=== PATIENT | male | born 1935 | race Caucasian/White ===

== ENCOUNTER 2017-08-20 12:17 | Inpatient (IN) ==
[2017-08-20] MEDS ORDERED: DILTIAZEM 50 MG/10 ML VIAL IV STA (12:40)
[2017-08-20] MEDS ORDERED: SODIUM CHLORIDE 0.9% 500 ML IV STA (12:40)
[2017-08-20] MEDS ORDERED: ASPIRIN 325 MG TABLET PO STA (12:40)
[2017-08-20] MEDS ORDERED: DILTIAZEM INJ 100 MG in SODIUM CHLORIDE 0.9% 100 ML IV SCH (13:00)
[2017-08-20 13:13] LABS: Basophils # 0.1 10*3/uL (0.0-0.2); Basophils % 0.6 % (0.0-0.8); Eosinophils # 0.2 10*3/uL (0.0-0.87); Eosinophils % 1.8 % (0.00-10.9); Hematocrit 40.8 VOL% (42.0-52.0); Hemoglobin 13.7 GM/DL (14.0-18.0); Immature Granulocytes % 0.3 %; Immature Granulocytes Absolute 0.03 #; Lymphocytes # 2.5 10*3/uL (1.4-4.0); Lymphocytes % 26.5 % (21.2-54.2); Mean Corpuscular HGB Conc 33.6 GM/DL (32-36); Mean Corpuscular Hemoglobin 32 PG (27-34); Mean Corpuscular Volume 93.8 FL (87-102); Mean Platelet Volume 11.7 FL (9.6-12.0); Monocytes # 1.1 10*3/uL (0.11-0.8); Monocytes % 11.2 % (1.7-12.7); Neutrophils # 5.6 10*3/uL (1.4-7.4); Neutrophils % 59.6 % (38.7-73.9); Platelet Count 210 T/CUMM (130-400); Red Blood Count 4.35 MC/CUMM (3.8-5.5); Red Cell Distribution Width 13.2 % (9.3-17.3); White Blood Count 9.5 T/CUMM (4-12)
[2017-08-20 13:26] LABS: Barbiturates Screen,Urine Positive (Negative); Benzodiazepines Screen,Urine Negative (Negative); Cannabinoid Screen,Urine Negative (Negative); Opiate Screen,Urine Negative (Negative); Phencyclidine Screen,Urine Negative (Negative)
[2017-08-20 13:27] LABS: PT Patient Result 10.7 SECS
[2017-08-20 14:04] LABS: Alanine Aminotransferase 23 U/L (16-61); Albumin 3.5 G/DL (3.4-5.0); Alkaline Phosphatase 67 U/L (45-117); Aspartate Amino Transferase 19 U/L (0-37); Bilirubin,Total < 0.39 MG/DL (0.2-1.0); Blood Urea Nitrogen 25 MG/DL (7-18); Calcium 8.9 MG/DL (8.5-10.1); Glucose 109 MG/DL (74-106); Osmolality,Calculated 281.5 MOS/KG (273-304); Potassium 4.2 MMOL/L (3.5-5.1); Sodium 139 MMOL/L (136-145); Total Protein 7.9 G/DL (6.4-8.3); Troponin I Only < 0.015 NG/ML (0.00-0.045)
[2017-08-20 14:22] LABS: Apearance,Urine Slightly Hazy (Clear); Bacteria,Urine Occasional /HPF (Few); Bilirubin,Urine Negative (Negative); Blood, Urine Negative (Negative); Glucose,Urine (UA) Negative (Negative); Hyaline Casts,Urine 16 /LPF (0-3); Ketones,Urine 5 mg/dL (Negative); Mucus,Urine Occasional /LPF (Occasional); Nitrite,Urine Negative (Negative); Protein,Urine 100 MG/DL; RBC,Urine 4 /HPF (0-4); Squamous Epithelial Cell,Urine Occasional /HPF (0-10); Urine Color Amber (Yellow); Urine Specific Gravity 1.021 (1.001-1.035); Urine Urobilinogen < 2.0 EU/DL (0.2-1.0); WBC,Urine 4 /HPF (0-6)
[2017-08-20] MEDS ORDERED: ENOXAPARIN 100 MG/ML SYRINGE SUBCUT STA (14:28)
[2017-08-20] MEDS: DILTIAZEM 60 MG TABLET PO SCH ×2 (18:25→23:01)
[2017-08-20] MEDS ORDERED: IBUPROFEN 400 MG TABLET PO PRN (19:07)
[2017-08-20] MEDS ORDERED: ACETAMINOPHEN 325 MG TABLET PO PRN (19:07)
[2017-08-20] MEDS ORDERED: DEXTROSE 50% 25 GM/50 ML VIAL IV PRN (19:07)
[2017-08-20] MEDS ORDERED: MORPHINE 4 MG/1 ML VIAL IV PRN (19:07)
[2017-08-20] MEDS ORDERED: ONDANSETRON 4 MG/2 ML VIAL IV PRN (19:07)
[2017-08-20] MEDS ORDERED: GLUCAGON 1 MG VIAL IM PRN (19:07)
[2017-08-20] MEDS ORDERED: metFORMIN 500 MG TABLET PO SCH (21:00)
[2017-08-20 22:33] LABS: Troponin I Only 0.167 NG/ML (0.00-0.045)
[2017-08-20] MEDS: DOCUSATE SODIUM 100 MG CAPSULE PO SCH (23:02)
[2017-08-20] MEDS: MULTIVITAMIN (CENTRUM) TABLET PO SCH (23:02)
[2017-08-20] MEDS: ENOXAPARIN 100 MG/ML SYRINGE SUBCUT SCH (23:02)
[2017-08-20] MEDS: SODIUM CHLORIDE 0.9% 1,000 ML IV SCH (23:02)
[2017-08-20] MEDS: PRIMIDONE 50 MG TABLET PO SCH (23:05)
[2017-08-21] MEDS: INSULIN REGULAR 100 UNIT/ML SUBCUT SCH ×4 (00:28→16:33)
[2017-08-21] MEDS: PRIMIDONE 50 MG TABLET PO SCH ×3 (00:29→15:01)
[2017-08-21 04:51] LABS: Basophils # 0.1 10*3/uL (0.0-0.2); Eosinophils # 0.2 10*3/uL (0.0-0.87); Eosinophils % 3.3 % (0.00-10.9); Hemoglobin 11.7 GM/DL (14.0-18.0); Immature Granulocytes % 0.3 %; Immature Granulocytes Absolute 0.02 #; Lymphocytes # 1.7 10*3/uL (1.4-4.0); Lymphocytes % 28.5 % (21.2-54.2); Mean Corpuscular HGB Conc 35.5 GM/DL (32-36); Mean Corpuscular Hemoglobin 32 PG (27-34); Mean Corpuscular Volume 91.2 FL (87-102); Mean Platelet Volume 11.1 FL (9.6-12.0); Monocytes # 0.7 10*3/uL (0.11-0.8); Monocytes % 11.7 % (1.7-12.7); Neutrophils # 3.3 10*3/uL (1.4-7.4); Neutrophils % 55.2 % (38.7-73.9); Platelet Count 181 T/CUMM (130-400); Red Blood Count 3.62 MC/CUMM (3.8-5.5); Red Cell Distribution Width 13.2 % (9.3-17.3); White Blood Count 6.1 T/CUMM (4-12)
[2017-08-21 05:15] LABS: Albumin 2.9 G/DL (3.4-5.0); Bilirubin,Total 0.6 MG/DL (0.2-1.0); Calcium 8.3 MG/DL (8.5-10.1); Osmolality,Calculated 286.1 MOS/KG (273-304); Potassium 3.9 MMOL/L (3.5-5.1); Risk Ratio 3.28; Total Protein 6.5 G/DL (6.4-8.3); VLDL CHOLESTEROL 26.6 MG/DL
[2017-08-21] MEDS ORDERED: ASPIRIN 325 MG TABLET PO ONE (07:09)
[2017-08-21] MEDS ORDERED: diphenhydrAMINE CAP 25 MG CAPSULE PO ONE (07:09)
[2017-08-21] MEDS ORDERED: DIAZEPAM 5 MG TABLET PO ONE (07:09)
[2017-08-21] MEDS ORDERED: POTASSIUM CHLORIDE RIDER 10 MEQ in PREMIX 1 EACH IV PRN (07:09)
[2017-08-21] MEDS ORDERED: MAGNESIUM SULF RIDER 2 GM in PREMIX 1 EACH IV PRN (07:09)
[2017-08-21] MEDS: DOCUSATE SODIUM 100 MG CAPSULE PO SCH (08:14)
[2017-08-21] MEDS: MULTIVITAMIN (CENTRUM) TABLET PO SCH (08:14)
[2017-08-21] MEDS: ENOXAPARIN 100 MG/ML SYRINGE SUBCUT SCH (08:21)
[2017-08-21] MEDS ORDERED: ATORVASTATIN 40 MG TABLET PO SCH (09:00)
[2017-08-21] MEDS ORDERED: DILTIAZEM CD 180 MG CAPSULE PO SCH (09:00)
[2017-08-21] MEDS ORDERED: PANTOPRAZOLE 40 MG TABLET PO SCH (09:00)
[2017-08-21] MEDS ORDERED: PIOGLITAZONE 15 MG TABLET PO SCH (09:00)
[2017-08-21] MEDS ORDERED: amLODIPine 5 MG TABLET PO SCH (09:00)
[2017-08-21] MEDS: SODIUM CHLORIDE 0.9% 1,000 ML IV SCH (12:24)
[2017-08-21] MEDS ORDERED: LIDOCAINE 1% 20 ML VIAL ONE (13:02)
[2017-08-21] MEDS ORDERED: NITROGLYCERIN DRIP 50 MG/250 ML BOTTLE IV ONE (13:02)
[2017-08-21] MEDS ORDERED: VERAPAMIL 5 MG/2 ML VIAL ONE (13:02)
[2017-08-21] MEDS ORDERED: ENOXAPARIN 60 MG/0.6 ML SYRINGE ONE (13:02)
[2017-08-21] MEDS ORDERED: fentaNYL 100 MCG/2 ML VIAL ONE (13:07)
[2017-08-21] MEDS ORDERED: MIDAZOLAM 2 MG/2 ML VIAL ONE (13:07)
[2017-08-21] MEDS ORDERED: DEXTROSE 50% 25 GM/50 ML VIAL IV PRN (14:03)
[2017-08-21] MEDS ORDERED: GLUCAGON 1 MG VIAL IM PRN (14:03)
[2017-08-21 18:45] VITALS: BP 119/71
[2017-08-22] MEDS ORDERED: ASPIRIN EC 81 MG TABLET PO SCH (09:00)
== END 2017-08-21 18:55 | disposition home or self-care (01) | DRG 287 ==
LOC: N.ED 12:17 → N.EDINP 14:28 → N.TELES 18:30
PROVIDERS: ADMIT Family Medicine; ATTEND Family Medicine
PROC: CLCCHCL (ICD-10-PCS; 2017-08-21 13:45)

== ENCOUNTER 2017-08-25 12:56 | Inpatient (IN) ==
[2017-08-25] MEDS ORDERED: MEPERIDINE 25 MG/1 ML VIAL ONE (14:06)
[2017-08-25] MEDS ORDERED: PROMETHAZINE 25 MG/1 ML VIAL ONE (14:07)
[2017-08-25] MEDS ORDERED: MEPERIDINE 50 MG/1 ML VIAL IM STA (14:10)
[2017-08-25] MEDS ORDERED: PROMETHAZINE 25 MG/1 ML VIAL IM STA (14:11)
[2017-08-25] MEDS ORDERED: TRIAMCINOLONE ACETONIDE 40 MG/1 ML VIAL ONE (15:54)
[2017-08-25] MEDS ORDERED: BUPIVACAINE MPF 0.25% 30 ML VIAL ONE (15:55)
[2017-08-25 17:20] LABS: Lymphocytes,Synovial Fluid 10 %; Neutrophils,Synovial Fluid 90 %
[2017-08-25 17:21] LABS: Cholesterol Crystals None Seen /LPF
[2017-08-25] MEDS ORDERED: GLUCAGON 1 MG VIAL IM PRN (17:40)
[2017-08-25] MEDS ORDERED: MORPHINE 4 MG/1 ML VIAL IV PRN (17:40)
[2017-08-25] MEDS ORDERED: DEXTROSE 50% 25 GM/50 ML VIAL IV PRN (17:40)
[2017-08-25] MEDS ORDERED: ONDANSETRON 4 MG/2 ML VIAL IV PRN (17:40)
[2017-08-25] MEDS ORDERED: ACETAMINOPHEN 325 MG TABLET PO PRN (17:40)
[2017-08-25 18:08] LABS: Basophils % 0.3 % (0.0-0.8); Eosinophils % 0.2 % (0.00-10.9); Hemoglobin 13.1 GM/DL (14.0-18.0); Immature Granulocytes % 0.2 %; Immature Granulocytes Absolute 0.02 #; Lymphocytes % 8.8 % (21.2-54.2); Mean Corpuscular HGB Conc 34.5 GM/DL (32-36); Mean Corpuscular Hemoglobin 31 PG (27-34); Mean Corpuscular Volume 91.1 FL (87-102); Mean Platelet Volume 11.4 FL (9.6-12.0); Monocytes # 1.1 10*3/uL (0.11-0.8); Monocytes % 10.3 % (1.7-12.7); Neutrophils # 8.7 10*3/uL (1.4-7.4); Neutrophils % 80.2 % (38.7-73.9); Platelet Count 226 T/CUMM (130-400); Red Blood Count 4.17 MC/CUMM (3.8-5.5); Red Cell Distribution Width 13.2 % (9.3-17.3); White Blood Count 10.9 T/CUMM (4-12)
[2017-08-25 18:25] LABS: Calcium 8.8 MG/DL (8.5-10.1); Osmolality,Calculated 279.5 MOS/KG (273-304); Potassium 4.3 MMOL/L (3.5-5.1)
[2017-08-25] MEDS: PRIMIDONE 50 MG TABLET PO SCH (21:22)
[2017-08-25] MEDS: MULTIVITAMIN (OCUVITE) TABLET PO SCH (21:22)
[2017-08-25] MEDS: DOCUSATE SODIUM 100 MG CAPSULE PO SCH (21:22)
[2017-08-25] MEDS: INSULIN LISPRO 100 UNIT/ML SUBCUT SCH (21:22)
[2017-08-25] MEDS: SODIUM CHLORIDE 0.45% 1,000 ML IV SCH (21:22)
[2017-08-25] MEDS: ENOXAPARIN 40 MG/0.4 ML SYRINGE SUBCUT SCH (21:23)
[2017-08-25] MEDS: BRIMONIDINE 0.1% OPH SOLN 5 ML BOTTLE LEFT EYE SCH (21:23)
[2017-08-25] MEDS: LEVOFLOXACIN INJ 500 MG in PREMIX 1 EACH IV SCH (21:29)
[2017-08-26] MEDS: SODIUM CHLORIDE 0.45% 1,000 ML IV SCH ×2 (05:59→14:03)
[2017-08-26 06:08] LABS: Basophils % 0.1 % (0.0-0.8); Hematocrit 35.4 VOL% (42.0-52.0); Hemoglobin 12.2 GM/DL (14.0-18.0); Immature Granulocytes % 0.4 %; Immature Granulocytes Absolute 0.04 #; Lymphocytes # 0.8 10*3/uL (1.4-4.0); Lymphocytes % 9.2 % (21.2-54.2); Mean Corpuscular HGB Conc 34.5 GM/DL (32-36); Mean Corpuscular Hemoglobin 31 PG (27-34); Mean Corpuscular Volume 90.5 FL (87-102); Mean Platelet Volume 11.3 FL (9.6-12.0); Monocytes # 0.9 10*3/uL (0.11-0.8); Monocytes % 10.1 % (1.7-12.7); Neutrophils # 7.2 10*3/uL (1.4-7.4); Neutrophils % 80.2 % (38.7-73.9); Platelet Count 209 T/CUMM (130-400); Red Blood Count 3.91 MC/CUMM (3.8-5.5); Red Cell Distribution Width 13.1 % (9.3-17.3)
[2017-08-26 06:29] LABS: Calcium 8.4 MG/DL (8.5-10.1); Osmolality,Calculated 278.8 MOS/KG (273-304); Potassium 3.8 MMOL/L (3.5-5.1)
[2017-08-26] MEDS: DOCUSATE SODIUM 100 MG CAPSULE PO SCH ×2 (08:31→20:55)
[2017-08-26] MEDS: PIOGLITAZONE 15 MG TABLET PO SCH (08:31)
[2017-08-26] MEDS: MULTIVITAMIN (OCUVITE) TABLET PO SCH ×2 (08:33→20:55)
[2017-08-26] MEDS: INSULIN LISPRO 100 UNIT/ML SUBCUT SCH ×4 (08:33→20:57)
[2017-08-26] MEDS: ASPIRIN EC 81 MG TABLET PO SCH (08:33)
[2017-08-26] MEDS: PANTOPRAZOLE 40 MG TABLET PO SCH (08:33)
[2017-08-26] MEDS: DILTIAZEM CD 180 MG CAPSULE PO SCH (08:33)
[2017-08-26] MEDS: BRIMONIDINE 0.1% OPH SOLN 5 ML BOTTLE LEFT EYE SCH ×2 (08:33→20:58)
[2017-08-26] MEDS: PRIMIDONE 50 MG TABLET PO SCH ×3 (08:39→20:55)
[2017-08-26] MEDS: ENOXAPARIN 40 MG/0.4 ML SYRINGE SUBCUT SCH (20:57)
[2017-08-26] MEDS ORDERED: ATORVASTATIN 40 MG TABLET PO SCH (21:00)
[2017-08-26] MEDS: LEVOFLOXACIN INJ 500 MG in PREMIX 1 EACH IV SCH (21:02)
[2017-08-27] MEDS: SODIUM CHLORIDE 0.45% 1,000 ML IV SCH (02:23)
[2017-08-27 05:43] LABS: Basophils % 0.1 % (0.0-0.8); Eosinophils % 0.1 % (0.00-10.9); Hematocrit 30.6 VOL% (42.0-52.0); Hemoglobin 10.6 GM/DL (14.0-18.0); Immature Granulocytes % 0.3 %; Immature Granulocytes Absolute 0.03 #; Lymphocytes # 0.9 10*3/uL (1.4-4.0); Lymphocytes % 9.1 % (21.2-54.2); Mean Corpuscular HGB Conc 34.6 GM/DL (32-36); Mean Corpuscular Hemoglobin 32 PG (27-34); Mean Corpuscular Volume 91.1 FL (87-102); Mean Platelet Volume 11.3 FL (9.6-12.0); Monocytes # 1.1 10*3/uL (0.11-0.8); Monocytes % 11.1 % (1.7-12.7); Neutrophils # 7.6 10*3/uL (1.4-7.4); Neutrophils % 79.3 % (38.7-73.9); Platelet Count 200 T/CUMM (130-400); Red Blood Count 3.36 MC/CUMM (3.8-5.5); Red Cell Distribution Width 13.2 % (9.3-17.3); White Blood Count 9.6 T/CUMM (4-12)
[2017-08-27 06:01] LABS: Osmolality,Calculated 286.4 MOS/KG (273-304); Potassium 4.1 MMOL/L (3.5-5.1)
[2017-08-27] MEDS ORDERED: ACETAMINOPHEN 325 MG TABLET PO PRN (07:09)
[2017-08-27] MEDS: INSULIN LISPRO 100 UNIT/ML SUBCUT SCH (07:50)
[2017-08-27] MEDS ORDERED: metFORMIN 500 MG TABLET PO SCH (08:00)
[2017-08-27 08:35] VITALS: BP 130/77
[2017-08-27] MEDS: DILTIAZEM CD 180 MG CAPSULE PO SCH (08:58)
[2017-08-27] MEDS: DOCUSATE SODIUM 100 MG CAPSULE PO SCH (08:59)
[2017-08-27] MEDS: PIOGLITAZONE 15 MG TABLET PO SCH (08:59)
[2017-08-27] MEDS: BRIMONIDINE 0.1% OPH SOLN 5 ML BOTTLE LEFT EYE SCH (08:59)
[2017-08-27] MEDS: ASPIRIN EC 81 MG TABLET PO SCH (08:59)
[2017-08-27] MEDS: MULTIVITAMIN (OCUVITE) TABLET PO SCH (09:00)
[2017-08-27] MEDS ORDERED: PRIMIDONE 50 MG TABLET PO SCH (09:00)
[2017-08-27] MEDS ORDERED: PRESERVISION AREDS PO SCH (09:00)
[2017-08-27] MEDS ORDERED: LISINOPRIL/HCTZ 20-12.5 MG TABLET PO SCH (09:00)
[2017-08-27] MEDS: PANTOPRAZOLE 40 MG TABLET PO SCH (09:07)
[2017-08-27] MEDS: PRIMIDONE 50 MG TABLET PO SCH (09:07)
== END 2017-08-27 11:11 | disposition home health service (06) | DRG 566 ==
LOC: EDBD → EDUNIT# → N.ED 12:56 → N.EDINP 17:40 → N.4E 20:31
PROVIDERS: ADMIT Family Medicine; ATTEND Family Medicine